=== PATIENT | male | born 1990 | race Caucasian/White ===

== ENCOUNTER 2025-03-01 22:04 | Emergency (ER) | payer MEDICAID ==
[~2025-03-01] VITALS: Ht 180.3 cm; Wt 90.0 kg
[2025-03-01 23:38] LABS: MEAN PLATELET VOLUME 9.2 FL (7.4-10.4); RED CELL DISTRIBUTION WIDTH 12.2 % (11.5-14.5)
[2025-03-01 23:43] LABS: ACETONE NEGATIVE (NEGATIVE)
[2025-03-01 23:49] LABS: CREATININE 0.86 MG/DL (0.60-1.10); TOTAL CARBON DIOXIDE 24.0 MMOL/L (24-32); eCRCL 130 ML/MIN; eGFR > 90 ML/MIN
[2025-03-02 01:40] LABS: URINE AMPHETAMINE SCREEN NEGATIVE (Neg); URINE BARBITUATE SCREEN NEGATIVE (Neg); URINE BENZODIAZEPINES SCREEN NEGATIVE (Neg); URINE CANNABINOID SCREEN POSITIVE (Neg); URINE COCAINE SCREEN NEGATIVE (Neg); URINE METHADONE SCREEN NEGATIVE (Neg); URINE OPIATE SCREEN NEGATIVE (Neg); URINE PHENCYCLIDINE SCREEN NEGATIVE (Neg)
--- NOTE | 2025-03-02 01:48 | Physician Documentation ---
History of Present Illness ~ Chief Complaint: ETOH Withdrawl Stated Complaint: ALCOHOL WITHDRAWAL Time Seen by MD: 01:47 Primary Medical Doctor: ANGELINA Mode of Arrival: POV HPI Patient presents to the emergency room for evaluation of hematemesis. Patient states that a few days ago he is finishing a Young after relapsing and began vomiting and then after awhile started having blood tinged vomit. He shared this with his friends who recommended to come to the emergency room. Reports dark stools but not black. She has sence cut back significantly on alcohol in his only drinking one or two beers a day at this point. Young that has triggered by a running out of psychiatric medications for which she is back on and states that has feeling much better. Tetanus within 5 years?: No Medication Reconciliation Allergies: Coded Allergies: No Known Allergies (Unverified , 03/01/25) Review of Systems ROS All review of systems negative except as per HPI Physical Exam Vital Signs: Temperature: 97.8, Source: Oral, Heart Rate: 68, Respiratory Rate: 15, BP: 145/78, Pulse Oximetry: 98, Weight: 90.000 Oxygen Flow Rate: 0 Physical Exam General: Patient is awake, alert, oriented x4 in no acute distress and well appearing.~ Head: Normocephalic and atraumatic. Eyes: Conjunctival normal. EOMI. PERRL. ENT: Mucous membranes moist. Neck: Supple, trachea is midline. Chest: Clear to auscultation bilaterally without rales, rhonchi, or wheezes. There is no accessory muscle use or retractions. Cardiac: RRR without murmurs, gallops, or rubs. Abd: Soft, nondistended, nontender, with normoactive bowel sounds. No guarding, rebound, or rigidity. : Good rectal tone, brown stools, guaiac negative Progress Results/Orders Results/Orders Completed Orders - ED ALBARADO MD Ondansetron Disint. Tablet (Zofran Odt T (03/02/25 02:20) Pantoprazole Tablet (Protonix) (03/02/25 02:20) Famotidine Tablet (Pepcid Tablet) (03/02/25 02:20) Vital Signs 03/01/25 03/02/25 03/02/25 22:16 00:46 01:02 Temp 97.8 Pulse 56 68 Resp 16 18 15 B/P (MAP) 129/89 145/78 (100) Pulse Ox 99 98 O2 Flow Rate 0 Laboratory Tests Test 03/01/25 23:19 03/02/25 01:09 White Blood Count 15.2 H Red Blood Count 4.30 L Hemoglobin 13.3 L Hematocrit 39.0 L Mean Corpuscular Volume 90.7 Mean Corpuscular Hemoglobin 31.0 Mean Corpuscular Hemoglobin Concent 34.2 Red Cell Distribution Width 12.2 Platelet Count 372 Mean Platelet Volume 9.2 Neutrophils (%) (Auto) 60.9 Lymphocytes (%) (Auto) 26.8 Monocytes (%) (Auto) 6.2 Eosinophils (%) (Auto) 4.7 Basophils (%) (Auto) 1.4 H Neutrophils # (Auto) 9.3 H Lymphocytes # (Auto) 4.1 Monocytes # (Auto) 0.9 Eosinophils # (Auto) 0.7 Basophils # (Auto) 0.2 CBC Comment Sodium Level 139 Potassium Level 4.0 Chloride Level 108 H Carbon Dioxide Level 24.0 Anion Gap 7 L Blood Urea Nitrogen 10 Creatinine 0.86 Estimated GFR/1.73 m2 > 90 BUN/Creatinine Ratio 11.6 Glucose Level 96 Calcium Level 8.9 Total Bilirubin 0.3 Aspartate Amino Transf (AST/SGOT) 26 Alanine Aminotransferase (ALT/SGPT) 40 Alkaline Phosphatase 52 Total Protein 7.3 Albumin 4.1 Globulin 3.2 Albumin/Globulin Ratio 1.3 Chemistry Comments Acetone Level Negative Urine Opiates Screen Negative Urine Methadone Screen Negative Urine Fentanyl Screen Negative Urine Barbiturates Screen Negative Urine Phencyclidine Screen Negative Urine Amphetamines Screen Negative Urine Benzodiazepines Screen Negative Urine Cocaine Screen Negative Urine Cannabinoids Screen Positive Drug Screen Comment Medical Decision Making Additional information obtaine: N/A Findings Patient presents to the emergency room with hematemesis as per HPI. Differentials include but are not limited to Jacquelyn-Escamilla, peptic ulcer, upper GI bleed, lower GI bleed, anemia therefore emergent labs ordered. Labs reassuring for no elevation of BUN or anemia. 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 I also believe he is suffering from alcoholic gastritis I will treat him as such. ER precautions discussed. No objective guilherme dence of alcohol withdrawal. Differential Dx:Considerations: Sub. Abuse -continuous, Skull fracture Departure Disposition: HOME / SELF CARE / HOMELESS Impression: Primary Impression: Alcoholic gastritis Additional Impression: Jacquelyn-Escamilla tear Condition: Stable Discharge Instructions: Jacquelyn-Escamilla Syndrome Referrals: NO PRIMARY CARE PROVIDER (PCP) Prescriptions Pantoprazole Sodium (PROTONIX tablet) 40 Mg Tablet.dr 1 TAB PO DAILY for 30 Days, #30 TAB 0 Refills Prov: ED ALBARADO MD 03/02/25 Ondansetron 8mg ODT (Ondansetron Odt) 8 Mg Tab.rapdis 1 TAB PO Q6H for nausea/vomiting for 3 Days, #12 TAB 0 Refills Prov: ED ALBARADO MD 03/02/25 Education Educated: Patient Educated regarding: diagnosis, treatment, need for follow up Signature Scribe Signature: No scribe Attestation: The note accurately reflects work and decisions made by me.Ed Albarado MD 03/02/25 02:26 ED ALBARADO MD Mar 02, 2025 01:48
[2025-03-02] MEDS ORDERED: PANT-47 PO (02:26)
[2025-03-02] MEDS ORDERED: ONDA-245 PO (02:26)
[2025-03-02] MEDS: ondansetron 4mg rapidly disintigrating tab PO ONE (02:53)
[2025-03-02] MEDS: pantoprazole 40mg Tablet.DR PO ONE (02:54)
[2025-03-02 02:57] VITALS: BP 141/89; PULSE 62; RESP 12; TEMP 97.8; O2SAT 96
== END 2025-03-02 03:00 | disposition home or self-care (01) ==
LOC: ER 22:05
DX: K29.20 Alcoholic gastritis without bleeding (principal); K22.6 Gastro-esophageal laceration-hemorrhage syndrome
CPT/HCPCS: 36415; 80053; 80305; 82009; 85025; 99284